=== PATIENT | female | born 1990 ===

== ENCOUNTER 2024-02-09 07:58 | Outpatient (CLI) | payer BC, SELFPAY | END 2024-02-09 07:59 | disposition home or self-care (01) | LOC: FRMREF 07:58 | PROVIDERS: PCP Physician Assistant Medical; Visit Provider Physician Assistant Medical | DX: Z13.220 Encounter for screening for lipoid disorders (principal) | CPT/HCPCS: 80061 ==

== ENCOUNTER 2025-05-03 10:30 | Outpatient (CLI) | payer OTHER, SELFPAY | END 2025-05-03 10:31 | disposition home or self-care (01) | PROVIDERS: PCP Physician Assistant Medical; Visit Provider Family Medicine | DX: Z13.29 Encounter for screening for other suspected endocrine disorder (principal); R15.9 Full incontinence of feces; Z13.0 Encounter for screening for diseases of the blood and blood-forming organs and certain disorders involving the immune mechanism; R53.83 Other fatigue; K62.5 Hemorrhage of anus and rectum; Z00.00 Encounter for general adult medical examination without abnormal findings | CPT/HCPCS: 80053; 82728; 83540; 83550; 84443; 87045; 87046; 87177; 87209; 87427 ==